=== PATIENT | female | born 1970 | race Caucasian/White ===

== ENCOUNTER 2017-06-13 12:07 | Day surgery (SDC) | payer MEDICAID ==
[2017-06-13] MEDS ORDERED: LIDOCAINE 1% 2 ML INJ ID PRN (12:32)
[2017-06-13] MEDS ORDERED: LR 1,000 ML IV ONE (12:32)
[2017-06-13] MEDS ORDERED: BUPIVACAINE/EPI 0.5% 30 ML SDV ONE (13:10)
[2017-06-13 13:27] LABS: ANION GAP 12 mEq/L (8-16); CALCIUM 10.5 mg/dL (8.5-10.4); CARBON DIOXIDE 23 mEq/l (22-31); CHLORIDE 103 mEq/L (97-110); CREATININE 0.9 mg/dL (0.6-1.0); GLOMERULAR FILTRATION RATE > 60; GLUCOSE 95 mg/dL (70-100); POTASSIUM 4.3 mEq/L (3.5-5.2); SODIUM 138 mEq/L (134-144)
[2017-06-13 13:39] LABS: PTH INTACT NO MINERALS 105.4 pg/ml (10.8-79.4)
[2017-06-13] MEDS ORDERED: ALBUTEROL 3 ML DEYVIAL IH PRN (13:47)
[2017-06-13] MEDS ORDERED: ACETAMINOPHEN 500 MG TAB PO PRN (13:47)
[2017-06-13] MEDS ORDERED: ONDANSETRON 4 MG/2 ML VIAL IVP PRN (13:47)
[2017-06-13] MEDS ORDERED: NALOXONE HCL 0.4 MG/ML INJ IVP PRN (13:47)
[2017-06-13] MEDS ORDERED: fentaNYL 100 MCG/2 ML INJ IVP PRN (13:47)
[2017-06-13] MEDS ORDERED: DEXAMETHASONE 4 MG/ML VIAL IVP PRN (13:47)
[2017-06-13] MEDS ORDERED: LR 500 ML IV PRN (13:47)
[2017-06-13] MEDS ORDERED: HYDROmorphONE/DILAUDID 1 MG/ML INJ IVP PRN (13:47)
--- NOTE | 2017-06-13 13:47 | PDANEPAE ---
ANE History of Present Illness Parathyroidectomy ANE Past Medical History - Cardiovascular History Hx Hypertension: No Hx Arrhythmias: No Hx Chest Pain: No Hx Coronary Artery / Peripheral Vascular Disease: No Hx CHF / Valvular Disease: No Hx Palpitations: No - Pulmonary History Hx COPD: No Hx Asthma/Reactive Airway Disease: No Hx Recent Upper Respiratory Infection: No Hx Oxygen in Use at Home: No Hx Sleep Apnea: No Sleep Apnea Screening Result - Last Documented: Negative - Neurologic History Hx Cerebrovascular Accident: No Hx Seizures: Yes Hx Dementia: No Neurologic History Comment: had a few after she stopped drinking alcohol - Endocrine History Hx Diabetes: No - Renal History Hx Renal Disorders: Yes Renal History Comment: kidney transplant 2002 - Liver History Hx Hepatic Disorders: No - Neurological & Psychiatric Hx Hx Neurological and Psychiatric Disorders: No Neurological / Psychiatric History Comment: Bi-polar disorder, PTSD, social anxiety, ADD - Cancer History Hx Cancer: No - Congenital Disorder History Hx Congenital Disorders: No - GI History Hx Gastrointestinal Disorders: No Gastrointestinal History Comment: hx of constipation - Other Health History Other Health History: two other leg wounds , skin graft area - Chronic Pain History Chronic Pain: Yes - Surgical History Prior Surgeries: emergency D&C ANE Review of Systems Review of Systems: - Exercise capacity METS (RN): 4 METS ANE Patient History - Allergies Allergies/Adverse Reactions: acetaminophen [From Vicodin] Allergy (Verified 06/13/17 13:15) Vomiting hydrocodone [From Vicodin] Allergy (Verified 06/13/17 13:15) Vomiting - Home Medications Home Medications: Adderall Xr 30 mg Capsule 06/13/17 [Last Taken 06/13/17] Desvenlafaxine 06/13/17 [Last Taken 06/13/17] Levothyroxine 06/13/17 [Last Taken 06/13/17] Oxcarbazepine [Trileptal] 06/13/17 [Last Taken 06/13/17] Propranolol HCl 06/13/17 [Last Taken 06/13/17] SIMVASTATIN 06/13/17 [Last Taken 06/12/17] Wellbutrin Sr BID 06/13/17 [Last Taken 06/13/17] Zolpidem Tartrate [Ambien Cr] 06/13/17 [Last Taken 06/13/17 02:00] - NPO status NPO Since - Liquids (Date): 06/13/17 NPO Since - Liquids (Time): 10:00 NPO Since - Solids (Date): 06/12/17 NPO Since - Solids (Time): 02:00 - Smoking Hx Smoking Status: Never smoked - Family Anes Hx Family Hx Anesthesia Complications: none ANE Labs/Vital Signs - Labs Result Diagrams: 06/13/17 13:05 - Vital Signs Blood Pressure: 111/75 Heart Rate: 72 Respiratory Rate: 16 O2 Sat (%): 99 Height: 175.26 cm Weight: 90.718 kg ANE Physical Exam - Airway Neck exam: FROM Mallampati Score: Class 2 Mouth exam: normal dental/mouth exam - Pulmonary Pulmonary: clear to auscultation - Cardiovascular Cardiovascular: regular rate and rhythym - ASA Status ASA Status: II ANE Anesthesia Plan Anesthesia Plan: general endotracheal anesthesia
--- NOTE | 2017-06-13 13:51 | PDHPUP ---
History & Physical Update H&P update statement: This history and physical update is based on an assessment of the patient which was completed after admission or registration (within 24 hours), but prior to the surgery/procedure. H&P update: H&P reviewed & patient examined, no change in patient's condition since H&P completed
--- NOTE | 2017-06-13 13:52 | POSTOPPROG ---
Post Op Note Date of Operation: 06/13/17 Surgeon: Eric Metzger Anesthesiologist: Amos Anesthesia: GET(General Endotracheal) Pre-op Diagnosis: primary hyperparathyroidism Post-op Diagnosis: same Procedure: parathyroidectomy with ioPTH Findings: right upper neck clinical adenoma Inf/Abcess present in the surg proc area at time of surgery?: No EBL: Minimal
[2017-06-13] MEDS ORDERED: SCOPOLAMINE HYDROBROMIDE 1 MG/3 DAYS PATCH TD SCH (14:00)
[2017-06-13] MEDS ORDERED: ROCURONIUM 100 MG/10 ML VIAL ONE (14:06)
[2017-06-13] MEDS ORDERED: fentaNYL 100 MCG/2 ML INJ ONE (14:06)
[2017-06-13] MEDS ORDERED: PROPOFOL/EMULSION 500 MG/50 ML BOTTLE IV ONE ×2 (14:06)
[2017-06-13] MEDS ORDERED: DEXAMETHASONE 4 MG/ML VIAL ONE ×2 (14:10→14:11)
[2017-06-13] MEDS ORDERED: ONDANSETRON 4 MG/2 ML VIAL ONE (14:11)
[2017-06-13] MEDS ORDERED: METOCLOPRAMIDE 10 MG/2 ML VIAL ONE (14:12)
[2017-06-13] MEDS ORDERED: RANITIDINE 50 MG/2 ML VIAL ONE (14:32)
[2017-06-13] MEDS ORDERED: KETOROLAC 30 MG/1 ML SDV ONE (15:53)
[2017-06-13 16:19] VITALS: TEMP 98.8
[2017-06-13 17:04] VITALS: RESP 14; O2SAT 95
[2017-06-13] MEDS ORDERED: ACETAMINOPHEN 500 MG TAB ONE (17:11)
[2017-06-13 18:15] VITALS: BP 100/72; PULSE 68
--- NOTE | 2017-06-13 18:54 | GOP ---
[f rep st] OPERATIVE REPORT DATE OF OPERATION: 06/13/2017 SURGEON: Eric Metzger MD ANESTHESIA: General. ANESTHESIOLOGIST: Dr. Trinidad. PREOPERATIVE DIAGNOSIS: Primary hyperparathyroidism. POSTOPERATIVE DIAGNOSIS: Primary hyperparathyroidism. PROCEDURE PERFORMED: Parathyroidectomy with intraoperative PTH monitoring. FINDINGS: Right upper neck clinical adenoma. Normal remaining 3 glands visualized. INDICATIONS: 47-year-old female with primary hyperparathyroidism with a history of prior lithium use. Preoperative imaging studies are suggestive of a possible right neck clinical adenoma. She is undergoing surgical excision at this time. Risks and benefits were explained including bleeding, infection, persistent and recurrent hyperparathyroidism, hypoparathyroidism, recurrent laryngeal nerve injury, as well as roles for additional surgical intervention. All questions were answered. She desires to proceed. DESCRIPTION OF PROCEDURE: After general anesthesia was induced, the neck was preinjected with 0.5% Marcaine with epinephrine. A low collar incision was created. The platysma muscle was divided. The strap muscles were along their midline raphe. The thyroid appeared normal bilaterally. The right hemineck cavity was initially explored. The thyroid was elevated up into the operative field. A soft, fatty, normal-appearing inferior pole parathyroid gland was identified immediately on the posterior aspect of the lowermost tip of the right thyroid lobe. Further exploration posterior to this disclosed a very firm 2.5 cm clinical adenoma arising from the upper pole vascular pedicle coursing inferiorly. The gland was elevated up into the operative field. It was taken back to its feeding vascular pedicle and divided using electrocautery. This was sent for permanent sectioning. The recurrent nerve was left intact. Further neck exploration on the left side disclosed a normal, soft, fatty appearing lower pole gland in mirror image just on the posterior inferior aspect of the left thyroid lobe. A normal-appearing upper pole parathyroid gland was identified just anterior to the recurrent laryngeal nerve muscle junction. Satisfactory hemostasis was assured throughout bilateral neck cavities. Preoperative PTH was 105. Ten, 15 and 20 minute specimens were 75, 47, and 33. The neck was closed in layers with absorbable sutures followed by Dermabond. The patient was taken to Recovery awake uneventfully. /[id number]/MODL MTDD
[2017-06-14] MEDS ORDERED: PATCH REMOVAL 1 EA PATCH TD ONE (13:59)
== END 2017-06-13 18:15 | disposition home or self-care (01) ==
LOC: FSGY 12:07
PROVIDERS: ATTEND Surgery
PROC: 0GBR0ZX Excision of Parathyroid Gland, Open Approach, Diagnostic (ICD-10-PCS; principal; 2017-06-13 14:15)
DX: D35.1 Benign neoplasm of parathyroid gland (principal); E21.0 Primary hyperparathyroidism
CPT/HCPCS: J1100; J1885; J2405; J2704; J2765; J2780; J3010

== ENCOUNTER → 2018-07-08 | Outpatient (CLI) | payer MEDICAID | LOC: FIMAGING 17:07 | PROVIDERS: ATTEND Internal Medicine | DX: R22.1 Localized swelling, mass and lump, neck (principal); Z86.39 Personal history of other endocrine, nutritional and metabolic disease ==

== ENCOUNTER → 2018-08-14 | Outpatient (CLI) | payer MEDICAID | LOC: FIMAGING 14:20 | PROVIDERS: ATTEND Internal Medicine | DX: R92.8 Other abnormal and inconclusive findings on diagnostic imaging of breast (principal); N64.4 Mastodynia ==